=== PATIENT | male | born 1985 | race Caucasian/White ===

== ENCOUNTER 2021-09-07 18:41 | Emergency (ER) | payer SELFPAY ==
[2021-09-07 19:00] VITALS: BP 124/77; PULSE 80; TEMP 97.6; BMI 24.4
[2021-09-07] MEDS ORDERED: DALBAVANCIN HCL 500 MG VIAL (RESTRICTED TO ID ONLY) IVPB ONE ×2 (19:53→19:56)
[2021-09-07 21:01] LABS: ALBUMIN 4.2 g/dl (3.4-5.0); BILIRUBIN,TOTAL 0.7 mg/dl (0.2-1); CALCIUM 9.5 mg/dl (8.5-10); CREATININE 1.1 mg/dl (0.55-1.3); TOT PROT 6.3 g/dl (6.4-8.2)
[2021-09-07 21:36] LABS: EOS % 2.6 % (0-4.5); HEMATOCRIT 39.3 % (35.4-49); LYMPH % 22.2 % (8-40); MCHC 33.1 g/dl (32.0-35.9); MEAN CELL VOLUME 93.7 fl (80-96); MEAN PLT VOLUME 8.4 fl (7.5-11.1); MONO % 11.1 % (3.8-10.2); NEUT % 63.1 % (42.8-82.8); PLATELET COUNT 292 10^3/uL (134-434); RDW 13.2 % (11.9-15.9); WHITE BLOOD COUNT 6.8 K/mm3 (4.0-10.0)
== END 2021-09-07 21:37 | disposition left against medical advice (07) ==
LOC: FER 18:41
DX: L03.113 Cellulitis of right upper limb (principal)
CPT/HCPCS: 36415; 70450-TC; 73130-TC-RT-FY; 80053; 85025; 87040; 99284-25